=== PATIENT | female | born 1960 | race Caucasian/White ===

== ENCOUNTER 2018-05-14 05:33 | Outpatient (CLI) | payer MEDICARE, OTHER ==
[~2018-05-14] VITALS: Ht 160 cm; Wt 61.2 kg
[2018-05-14] MEDS ORDERED: HYDR-4226 PO (14:02)
[2018-05-14] MEDS ORDERED: RT-ALBUINH IH (14:02)
[2018-05-14] MEDS ORDERED: FLUO10CA29 PO (14:02)
[2018-05-14] MEDS ORDERED: INSU100V6 SQ (14:02)
[2018-05-14] MEDS ORDERED: DOCU100C37 PO (14:02)
[2018-05-14] MEDS ORDERED: BUSP5TAB59 PO (14:02)
[2018-05-14] MEDS ORDERED: TRAM50TA2 PO (14:02)
[2018-05-14] MEDS ORDERED: SPIR25TA5 PO (14:02)
[2018-05-14] MEDS ORDERED: ALPR0.254 PO (14:02)
[2018-05-14] MEDS ORDERED: RANI150T46 PO (14:02)
[2018-05-14] MEDS ORDERED: GABA-488 PO (14:02)
[2018-05-14] MEDS ORDERED: METO50TA15 PO (14:02)
[2018-05-14] MEDS ORDERED: RANI-514 PO (14:02)
[2018-05-14] MEDS ORDERED: CANA300T PO (14:02)
[2018-05-14] MEDS ORDERED: ATOR10TA PO (14:02)
[2018-05-14] MEDS ORDERED: BUDE10.22 IH (14:02)
[2018-05-14] MEDS ORDERED: QUET25TA PO (14:02)
[2018-05-14] MEDS ORDERED: QUET25TA73 PO (14:02)
[2018-05-14] MEDS ORDERED: ASPI-586 PO (14:02)
== END 2018-05-14 14:10 | disposition home or self-care (01) ==
LOC: PREOP 05:33 → EDUNIT# 08:30 → PREOP 14:10
PROVIDERS: ATTEND Orthopaedic Surgery
DX: Z01.818 Encounter for other preprocedural examination (principal)

== ENCOUNTER 2018-05-18 05:53 | Day surgery (SDC) | payer MEDICARE, OTHER ==
[~2018-05-18] VITALS: Ht 160 cm; Wt 61.2 kg
[~2018-05-18 05:53] MED LIST: ALPR0.254 PO; ASPI-586 PO; ATOR10TA PO; BUDE10.22 IH; BUSP5TAB59 PO; CANA300T PO; DOCU100C37 PO; FLUO10CA29 PO; GABA-488 PO; HYDR-4226 PO; INSU100V6 SQ; METO50TA15 PO; QUET25TA PO; QUET25TA73 PO; RANI-514 PO; RANI150T46 PO; RT-ALBUINH IH; SPIR25TA5 PO; TRAM50TA2 PO
[2018-05-18] MEDS ORDERED: LACTATED RINGERS 1,000 ML IV PRN (06:10)
[2018-05-18] MEDS ORDERED: CLINDAMYCIN 600 MG/50 ML IVPB 50 ML IV ONE ×2 (06:15→06:22)
[2018-05-18] MEDS ORDERED: FAMOTIDINE 20MG/2ML IV (PEPCID) ONE (06:22)
[2018-05-18] MEDS ORDERED: RT-ALBUTEROL SULF 2.5 MG/3 ML PRE-MIX VIAL ONE (06:29)
[2018-05-18 06:30] VITALS: BP 107/58
[2018-05-18] MEDS ORDERED: FAMOTIDINE 20MG/2ML IV (PEPCID) IV ONE (06:30)
[2018-05-18] MEDS ORDERED: RT-ALBUTEROL SULF 2.5 MG/3 ML PRE-MIX VIAL INH ONE (06:30)
[2018-05-18] MEDS ORDERED: BUP/EPI 0.5% 1:200,000 (SENSORCAINE) 30 ML VIAL ONE (06:47)
[2018-05-18] MEDS ORDERED: IOPAMIDOL 61% 30 ML (ISOVUE 300) VIAL IV ONE (06:48)
[2018-05-18] MEDS ORDERED: SEVOFLURANE (ULTANE) 15 ML INHAL SOLN ONE (06:55)
[2018-05-18] MEDS ORDERED: SUCCINYLCHOLINE INJ 100 MG/5 ML SYR ONE (06:55)
[2018-05-18] MEDS ORDERED: LIDOCAINE PF 2% 5 ML (XYLOCAINE) VIAL ONE (06:55)
[2018-05-18] MEDS ORDERED: fentaNYL INJECTION 100 MCG/2 ML AMP ONE (06:55)
[2018-05-18] MEDS ORDERED: PROPOFOL INJECTION 50 ML IV ONE (06:55)
[2018-05-18] MEDS ORDERED: ONDANSETRON 4 MG/2 ML (SDV) Z0FRAN ONE (06:55)
[2018-05-18] MEDS ORDERED: MIDAZOLAM 2 MG/2 ML (VERSED) VIAL ONE (06:56)
[2018-05-18] MEDS ORDERED: morphine INJ 10 MG/ML 1ML (SYR OR VIAL) IVP ONE (08:45)
[2018-05-18] MEDS ORDERED: ONDANSETRON 4 MG/2 ML (SDV) Z0FRAN IVP PRN (08:45)
[2018-05-18] MEDS ORDERED: HYDROcodone/APAP 5 MG/325 MG (LORTAB) TAB ONE (09:24)
[2018-05-18 09:25] VITALS: BP 91/50
--- NOTE | 2018-05-18 09:48 | NUR ---
LORTAB 5/325 MG 1 PO GIVEN FOR PAIN THAT THE PATIENT RATES A 6.
[2018-05-18 09:55] VITALS: BP 123/67
[2018-05-18] MEDS ORDERED: HYDROcodone/APAP 5 MG/325 MG (LORTAB) TAB PO PRN (10:00)
[2018-05-18 10:05] VITALS: BP 123/67
--- NOTE | 2018-05-18 10:19 | Diagnostic Imaging Report ---
Indication: Fluoroscopy during kyphoplasty. Fluoroscopy was provided in OR during kyphoplasty. A total of 1 minute and 11 seconds of fluoroscopy was utilized. Impression: Fluoroscopy for kyphoplasty. Dictated by: Dictated on workstation # [id number]
--- NOTE | 2018-05-18 15:15 | Anesthesia-General Post-Op ---
General Patient Condition Mental Status/LOC: Same as Preop Cardiovascular: Satisfactory Nausea/Vomiting: Absent Respiratory: Satisfactory Pain: Controlled Complications: Absent Post Op Complications Complications None Follow Up Care/Instructions Patient Instructions None needed. Anesthesia/Patient Condition Patient Condition Patient is doing well, no complaints, stable vital signs, no apparent adverse anesthesia problems. No complications reported per nursing. TETE MURCIA CRNA May 18, 2018 15:15
--- NOTE | 2018-05-19 17:47 | OPERATIVE REPORT ---
DATE OF SERVICE: 05/18/2018 SURGEON: Chelle Zhou DO [employer] ASSOCIATE: None. PREOPERATIVE DIAGNOSES: 1. Osteoporosis. 2. L2 compression fracture. POSTOPERATIVE DIAGNOSES: 1. Osteoporosis. 2. L2 compression fracture. PROCEDURES PERFORMED: 1. L2 kyphoplasty. 2. L2 vertebral body biopsy. COMPLICATIONS: None. SPECIMEN SENT: L2 vertebral body. DRAIN PLACED: None. ANESTHESIA: General endotracheal tube anesthesia with local anesthetic. ESTIMATED BLOOD LOSS: Minimal. HISTORY OF PRESENT ILLNESS: The patient is a very pleasant 57-year-old female patient of mine, who had undergone prior L1 kyphoplasty. She had a new acute L2 compression fracture. She did wish to proceed with augmentation of this. DESCRIPTION OF PROCEDURE: The patient was identified by name on wrist band in the preoperative holding area. Her operative site was signed, consent was signed. SCDs were placed. Antibiotics were started. She was taken to the operating room theater and placed under general endotracheal tube anesthesia, then transferred to the operating room table in the prone position. She was prepped and draped in the usual sterile fashion. Formal timeout was conducted. AP and lateral x-ray was then brought in and centered over the L2 pedicles. At this point, I made a small stab incision to the left and right of midline. I advanced a [employer] introducer through the pedicles and into the vertebral body. I then obtained a vertebral body biopsy. I then inflated a balloon inside the vertebral body to create a void. I filled this void with polymethyl methacrylate cement. I did achieve good endplate to endplate fill with no cement extravasation. When I was finished, I removed the introducer needles. Final AP and lateral x-ray demonstrated appropriate positioning of the cement. At this point, I cleansed the skin. I placed Band-Aids and placed the patient in a supine position, took her to the PACU where she awoke without incident. The plan at this time is to see the patient back in 2 weeks. Her activity level will be as tolerated and she will be sent home with a prescription for p.o. pain medication. Job ID: [id number] DocumentID: [id number] Dictated Date: 05/19/2018 12:46:01 Technical Support Professional Date: 05/19/2018 17:47:11 Dictated By: CHELLE ZHOU DO
== END 2018-05-18 10:19 | disposition home or self-care (01) ==
LOC: SDC 05:53
PROVIDERS: ATTEND Orthopaedic Surgery
DX: M80.88XA Other osteoporosis with current pathological fracture, vertebra(e), initial encounter for fracture (principal); I11.0 Hypertensive heart disease with heart failure; I25.10 Atherosclerotic heart disease of native coronary artery without angina pectoris; I50.9 Heart failure, unspecified; J44.9 Chronic obstructive pulmonary disease, unspecified; E11.9 Type 2 diabetes mellitus without complications; K21.9 Gastro-esophageal reflux disease without esophagitis; F41.9 Anxiety disorder, unspecified; F31.9 Bipolar disorder, unspecified; Z95.5 Presence of coronary angioplasty implant and graft; Z88.0 Allergy status to penicillin; Z88.2 Allergy status to sulfonamides; Z88.5 Allergy status to narcotic agent; Z79.899 Other long term (current) drug therapy; Z79.82 Long term (current) use of aspirin; Z79.84 Long term (current) use of oral hypoglycemic drugs
CPT/HCPCS: 82962; 87081; 94640